=== PATIENT | female | born 1955 | race Caucasian/White ===

== ENCOUNTER 2017-06-07 13:43 | Observation (INO) | payer OTHER ==
[~2017-06-07] VITALS: Ht 167.6 cm; Wt 125.8 kg
[~2017-06-07 13:43] MED LIST: BACTRIM DS TAB1 EACH PO; DOXYCYCLINE HY100 MG PO; TYLENOL # 31 EA PO; ZESTRIL10 MG PO
[2017-06-07] MEDS ORDERED: ASPIRIN 81 MG CHEW TAB PO ONE (14:00)
[2017-06-07 14:18] LABS: BASOPHILS # (AUTO) 0.1 (0.0-0.1); BASOPHILS % 0.7 % (0.0-1.0); EOSINOPHILS # (AUTO) 0.1 (0.0-0.4); EOSINOPHILS % 1.2 % (0.0-6.0); HEMATOCRIT 42.7 % (34.2-44.1); HEMOGLOBIN 14.1 g/dL (12.0-16.0); LYMPHOCYTES # (AUTO) 1.7 (1.0-3.2); LYMPHOCYTES % 14.8 % (18.0-39.1); MEAN CORPUSCULAR VOLUME 90.9 fL (81-99); MONOCYTES # (AUTO) 0.5 (0.2-0.8); MONOCYTES % 4.4 % (4.4-11.3); NEUTROPHILS # (AUTO) 8.8 (2.1-6.9); NEUTROPHILS % 78.3 % (38.7-80.0); PLATELET COUNT 383 x10e3/uL (140-360); RED CELL DISTRIBUTION WIDTH 14.3 % (11.7-14.4)
[2017-06-07 14:23] LABS: PROTHROMBIN TIME 12.4 seconds (11.9-14.5)
[2017-06-07 14:24] LABS: PARTIAL THROMBOPLASTIN TIME 25.8 seconds (23.8-35.5)
[2017-06-07 14:30] LABS: ALANINE AMINOTRANSFERASE 18 IU/L (0-55); ALBUMIN 3.6 g/dL (3.5-5.0); ALBUMIN/GLOBULIN RATIO 0.9 (0.8-2.0); ALKALINE PHOSPHATASE 81 IU/L (40-150); ANION GAP 15.7 mmol/L (8-16); BLOOD UREA NITROGEN 9 mg/dL (7-26); BUN/CREATININE RATIO 11 (6-25); CALCIUM 8.9 mg/dL (8.4-10.2); CARBON DIOXIDE 25 mmol/L (22-29); CHLORIDE 103 mmol/L (98-107); CREATINE KINASE 69 IU/L (29-168); CREATININE, SERUM 0.82 mg/dL (0.57-1.11); EST GLOMERULAR FILTRATION RATE > 60 ML/MIN (60-); GLUCOSE 116 mg/dL (74-118); POTASSIUM 4.7 mmol/L (3.5-5.1); SODIUM 139 mmol/L (136-145)
--- NOTE | 2017-06-07 15:23 | Diagnostic Imaging Report ---
PROCEDURE: CHEST SINGLE (PORTABLE) 1442 hrs. COMPARISON: Chest x-ray 12/27/15. INDICATIONS: SHORTNESS OF BREATH, CHEST PAIN, DYSPNEA FINDINGS: LUNGS: Lung volumes are slightly diminished. No mass, consolidations or edema. PLEURA: No effusions or pneumothorax. HEART \T\ MEDIASTINUM: The heart is within normal size-limits. BONES \T\ SOFT TISSUES: No focal osseous lesions. Soft tissue are unremarkable. CONCLUSION: Low lung volumes. No acute cardiopulmonary process. Dictated by: Chau Bynum M.D. on 06/07/2017 at 15:22 Electronically approved by: Chau Bynum M.D. on 06/07/2017 at 15:22
[2017-06-07 16:58] LABS: ABG HCO3 31 mmol/L (23-28); ABG PCO2 45 mmHg (41-51); ABG PH 7.44 (7.31-7.41); ABG PO2 64 mmHg (80-105)
[2017-06-07] MEDS ORDERED: ENOXAPARIN INJ 80 MG/0.8 ML SYR SC STA (17:42)
[2017-06-07] MEDS ORDERED: ALBUTEROL/IPRATROPIUM 3 ML NEB NEB PRN (17:45)
[2017-06-07] MEDS ORDERED: HYDRALAZINE HCL 20 MG/ML VIAL IV PRN (18:00)
[2017-06-07] MEDS ORDERED: GABAPENTIN300 MG PO (19:34)
[2017-06-07] MEDS ORDERED: FOLIC ACID1 MG PO (19:34)
[2017-06-07] MEDS ORDERED: BENZONATATE100 MG PO (19:34)
[2017-06-07] MEDS ORDERED: MULTI-VITAMIN1 EACH PO (19:34)
[2017-06-07] MEDS ORDERED: METOPROLOL TAR100 MG PO (19:34)
[2017-06-07] MEDS ORDERED: AMLODIPINE BESY10 MG PO (19:34)
[2017-06-07] MEDS ORDERED: VITAMIN B-121000 MCG PO (19:34)
[2017-06-07] MEDS ORDERED: ADVAIR 100-501 EACH (19:34)
[2017-06-07] MEDS ORDERED: ALBUTEROL0.63 MG/3 (19:34)
[2017-06-07] MEDS ORDERED: THIAMINE HCL100 MG PO (19:34)
--- OUTSIDE RECORDS SUMMARY | 2017-06-07 19:59 | XMS REPORT ---
Author Author [facility] Address Unknown Phone Unavailable Care Team Providers Care Safety Assistant Name Role Phone MAGALIS HI Unavailable Unavailable Problems This patient has no known problems. Allergies, Adverse Reactions, Alerts This patient has no known allergies or adverse reactions. Medications This patient has no known medications. Results Test Description Test Time Test Comments Text Results Atomic Results Result Comments CHEST SINGLE (PORTABLE) [place] [address] Patient Name: JESSY HANLEY MR #: [id number] : 1955 Age/Sex: 62/F Req #: [id number] Adm Physician: Ordered by: MAGALIS HI MD Report #: [id number] Location: ER Room/Bed: Procedure: [id number] DX/CHEST SINGLE (PORTABLE) Exam Date: 06/07/17 Exam Time: 1440 REPORT STATUS: Signed PROCEDURE: CHEST SINGLE (PORTABLE) 1442 hrs. COMPARISON: Chest x-ray 12/27/15. INDICATIONS: SHORTNESS OF BREATH, CHEST PAIN, DYSPNEA FINDINGS: LUNGS: Lung volumes are slightly diminished. No mass, consolidations or edema. PLEURA: No effusions or pneumothorax. HEART T MEDIASTINUM: The heart is within normal size-limits. BONES T SOFT TISSUES: No focal osseous lesions. Soft tissue are unremarkable. CONCLUSION: Low lung volumes. No acute cardiopulmonary process. Dictated by: Yonny Bynum M.D. on 06/07/2017 at 15:22 Electronically approved by: Yonny Bynum M.D. on 06/07/2017 at 15:22 Dictated By: YONNY BYNUM MD 1522 Transcribed By: CHEL on 06/07/17 1522 COPY TO: MAGALIS HI MD
[2017-06-07 20:20] VITALS: BP 175/103
[2017-06-07 20:35] VITALS: BP 175/103
[2017-06-07] MEDS ORDERED: FUROSEMIDE INJ 10 MG/ML 4 ML VIAL IV SCH (21:00)
[2017-06-07 21:17] VITALS: BP 175/103
[2017-06-07 21:28] VITALS: BP 175/103
[2017-06-07] MEDS: ACETAMINOPHEN 325 MG TAB PO PRN (22:04)
[2017-06-07] MEDS: GABAPENTIN 300 MG CAP PO SCH (22:04)
[2017-06-07] MEDS ORDERED: SODIUM CHLORIDE 0.9% 50ML 50 ML ONE (22:18)
[2017-06-07] MEDS ORDERED: IOPAMIDOL 370 MG/ML 200 ML INFUS..BTL INJ ONE (22:18)
--- NOTE | 2017-06-07 22:21 | Diagnostic Imaging Report ---
EXAM: CT Chest WITH contrast 06/07/2017 6:03 PM INDICATION: Shortness of breath, pulmonary embolism COMPARISON: None TECHNIQUE: Chest was scanned utilizing a multidetector helical scanner from the lung apex through the level of the adrenal glands without administration of IV contrast. Coronal and sagittal reformations were obtained. Routine protocol was performed. IV CONTRAST: 100 mL of Isovue-370 RADIATION DOSE: Total DLP: 526.12 mGy*cm Estimated effective dose: (DLP x 0.014 x size factor) mSv COMPLICATIONS: None FINDINGS: LINES/ TUBES: None. LUNGS AND AIRWAYS: Small right apical pneumatocele in the superior segment of the right lower lobe. Minimal rounded atelectasis in the right middle lobe series 3, image 74 Airways are normal. PLEURA: The pleural spaces are clear. HEART AND MEDIASTINUM: The thyroid gland is normal. No mediastinal, hilar or axillary lymphadenopathy. The heart is normal in size.. There is no pericardial effusion. There are mild atherosclerotic calcifications in the aorta and coronary arteries. No evidence of filling defects in the distribution of the pulmonary arteries. The pulmonary artery is normal in caliber measuring 2.7 cm. UPPER ABDOMEN: Limited non-contrast views of the upper abdomen show no abnormality within the visualized liver, spleen, pancreas, or kidneys. The adrenal glands are normal. BONES: There are mild degenerative changes in the thoracic spine. SOFT TISSUES: Unremarkable. IMPRESSION: No acute intrathoracic abnormality. Specifically, no evidence of pulmonary embolism. Signed by: Dr. Jim Carmen M.D. on 06/07/2017 10:17 PM
[2017-06-08] VITALS (8 sets, daily range): BP systolic 120–151; BP diastolic 60–87
[2017-06-08 01:22] LABS: CREATINE KINASE 60 IU/L (29-168)
[2017-06-08] MEDS: FUROSEMIDE INJ 10 MG/ML 2 ML VIAL IV SCH ×3 (05:18→17:10)
[2017-06-08] MEDS: GABAPENTIN 300 MG CAP PO SCH ×3 (06:07→21:49)
[2017-06-08] MEDS ORDERED: ALBUTEROL SULF 0.083% NEB SOLN 3 ML NEB NEB SCH (07:00)
[2017-06-08] MEDS ORDERED: SALMETEROL/FLUTICASONE 100/50 INH SCH (07:00)
[2017-06-08] MEDS: LISINOPRIL 20 MG TAB PO SCH (08:25)
[2017-06-08] MEDS: METOPROLOL TARTRATE 50 MG TAB PO SCH ×2 (08:25→17:10)
[2017-06-08] MEDS ORDERED: LORAZEPAM INJ 2 MG/ML VIAL IV PRN (08:30)
[2017-06-08] MEDS ORDERED: AMLODIPINE BESYLATE 10 MG TAB PO SCH (09:00)
--- NOTE | 2017-06-08 09:04 | History and Physical ---
CHIEF COMPLAINT: Trouble breathing for the last few months and progressively getting worse and leg swelling. HISTORY OF PRESENT ILLNESS: A 62-year-old pleasant female with a past medical history of multiple medical problems was admitted at [facility] with the above complaints. The patient was seen in my office yesterday morning with the above complaints. As per the patient, since the last few months she had trouble breathing on exertion. Also, she had trouble lying down flat on the bed because the patient could not breathe. Also, complaining of bilateral leg swelling progressively getting worse. Hence, the patient came to my office yesterday. The patient was referred to the ER for further workup and treatment. In the emergency room, the patient was seen by the emergency room doctor and was admitted to the hospital for further care and treatment. At present, the patient is lying comfortably in bed. Feeling better. No chest pain. No nausea, vomiting or diarrhea. No abdominal pain or loss of consciousness. No palpitations. No headaches. No hematemesis. No melena. No hematuria or dysuria. No fever. No cough. No witnessed seizures. PAST MEDICAL HISTORY 1. Hypertension. 2. Hypothyroidism. 3. COPD. 4. Peripheral neuropathy. 5. Depression. 6. Alcoholism. SURGICAL HISTORY: Hysterectomy. ALLERGIES: NO KNOWN DRUG ALLERGIES. SOCIAL HISTORY: Smoking plus about half a pack a day. Alcohol abuse on and off plus. Last drink about 3 days back. No illicit drug use. FAMILY HISTORY: Noncontributory. REVIEW OF SYSTEMS: As per HPI. PHYSICAL EXAMINATION GENERAL: The patient is alert and oriented times 3. No apparent distress. Lying in bed. VITALS: Temperature is 97.9, pulse 77 per minute, respiratory rate 20, blood pressure 125/70, and saturation is 95% on room air. HEENT: No cyanosis. No icterus. No pallor. Normocephalic and atraumatic. PERRLA. NECK: Soft and supple. No JVD or carotid bruits. LUNGS: Air entry bilaterally decreased. HEART: S1 and S2. No murmur, rub or gallop. ABDOMEN: Soft and nontender. Bowel sounds positive. CLERK TELEGRAPH SERVICE: Alert and oriented times 3. No focal deficit. EXTREMITIES: Pedal edema +2. LABS: On admission to the ER, white count 11.28, hemoglobin 14.1, hematocrit 42.7, and platelets 380,000. Sodium 139, potassium 4.7, chloride 103, bicarb 25, BUN 9, creatinine 0.8, glucose 116. LFTs noted. Cardiac enzymes times 2 negative. Alcohol level less than 10. ABG on admission to the ER with pH of 7.44, pCO2 45, pO2 64. Chest x-ray shows lower lung volumes. No acute cardiopulmonary process. CT of chest with PE protocol shows no acute intrathoracic abnormalities. No evidence of pulmonary embolism. EKG shows sinus rhythm with occasional PVCs and PACs. No acute S/T changes. ASSESSMENT 1. Dyspnea, orthopnea: Could be chronic obstructive pulmonary disease exacerbation with underlying /diastolic congestive heart failure. 2. History of hypertension, hypothyroidism, depression, anxiety, and alcoholism. PLAN: Admit the patient to med/tele. Cardiology consult noted. Echo pending report. The patient is on IV Lasix, oxygen neb treatments. Pulmonary consultation with Dr. Thompson. DVT prophylaxis. Will also get psych evaluation with Dr. Menendez. DVT and stress prophylaxis. Further care and treatment of the patient in the hospital. Job#: [id number] TAHIR
[2017-06-08] MEDS: FOLIC ACID 1 MG TAB PO SCH (09:35)
[2017-06-08] MEDS: THIAMINE HCL 100 MG TAB PO SCH (09:35)
[2017-06-08 10:06] LABS: CREATINE KINASE MB 0.6 ng/mL (0-5.0)
--- NOTE | 2017-06-08 11:43 | Consultation ---
DATE OF CONSULTATION: PULMONARY CONSULTATION REASON FOR CONSULTATION: Shortness of breath. HPI: Ms. Olguin is a 62-year-old female. She was seen in Dr. Silver's office where she became short of breath. Dr. Silver admitted the patient for further workup. Patient reports that she has been having difficulty lying flat for years and it is progressively getting worse. She has shortness of breath on exertion. She has been diagnosed with COPD. She has been a smoker for 40 years. She also noticed that she had palpitations for years as well. She denies any chest pain, nausea, vomiting or diarrhea. She still smokes. She is morbidly obese. She has never been tested for sleep apnea. REVIEW OF SYSTEMS GENERAL: Denies any fever or chills. HEAD: Denies any head trauma or head injury. ENT: Denies any earache, nosebleed or throat pain. CVS: Denies any chest pain. RESPIRATORY: Shortness of breath and orthopnea. GI: Denies any nausea or vomiting. OTHER: The rest of the review systems are negative except as in HPI. PAST MEDICAL HISTORY: Hypertension, COPD, hypothyroidism, peripheral neuropathy, history of depression. PAST SURGICAL HISTORY: Hysterectomy. FAMILY AND SOCIAL HISTORY: She reports that she drinks occasionally. However, Dr. Silver's note says the patient has history of alcohol abuse off and on and binge drinking. She smokes 1 pack per day for 40 years. She used to work with adults with disabilities, currently not working. She is . Her son and [id number] live with her. FAMILY HISTORY: Significant for hypertension on the father's side. PHYSICAL EXAMINATION VITAL SIGNS: Temperature 97.9, pulse 75, blood pressure 125/64, respiratory rate 18, O2 sat 94% on room air. SKIN: Warm and dry. GENERAL APPEARANCE: She is a middle-aged female not in any obvious distress. She is awake and alert, following commands. Responding to questions appropriately. HEENT: Head is atraumatic normocephalic. Pupils are reactive. NECK: Supple. No JVD. Thyroid not enlarged. CHEST: Clear to auscultation bilaterally, no wheezing. HEART: S1, S2 audible. ABDOMEN: Soft, nontender, nondistended. EXTREMITIES: 2+ peal edema. NEUROLOGIC: Awake, alert and oriented. LABORATORY DATA: White count 11,000, hemoglobin 14.1, platelets 383. Chemistry is within normal limits. Troponins are negative. CT of the chest: I reviewed the images, and it is not showing any abnormalities in the chest and no pulmonary embolism. ASSESSMENT: Ms. Olguin is a 62-year-old female who presented with orthopnea. Cardiology workup is in progress. Patient has known history of chronic obstructive pulmonary disease, and she still smokes. There is a high probability the patient has sleep apnea. However, she told me that she would never use CPAP and does not want me to order any CPAP here. PLAN: At this point I will recommend continuing oxygen if the saturation is less than 90%. Will order pulmonary function test. Continue the patient on nebulizer and Advair as ordered. Thank you for this consult. Job#: [id number]
[2017-06-08] MEDS ORDERED: LORAZEPAM 0.5 MG TAB PO PRN (13:45)
[2017-06-08] MEDS: ACETAMINOPHEN 325 MG TAB PO PRN (14:28)
[2017-06-08] MEDS ORDERED: ENOXAPARIN SOD INJ 40 MG/0.4 ML SYR SC SCH (17:00)
[2017-06-08] MEDS: SALMETEROL/FLUTICASONE 250/50 INH SCH (21:10)
[2017-06-09 04:29] VITALS: BP 134/83
[2017-06-09] MEDS: GABAPENTIN 300 MG CAP PO SCH (06:15)
[2017-06-09 06:33] LABS: BASOPHILS # (AUTO) 0.1 (0.0-0.1); BASOPHILS % 0.7 % (0.0-1.0); EOSINOPHILS # (AUTO) 0.2 (0.0-0.4); EOSINOPHILS % 2.9 % (0.0-6.0); HEMATOCRIT 38.6 % (34.2-44.1); HEMOGLOBIN 12.6 g/dL (12.0-16.0); LYMPHOCYTES # (AUTO) 2.1 (1.0-3.2); LYMPHOCYTES % 30.9 % (18.0-39.1); MEAN CORPUSCULAR HEMOGLOBIN 29.5 pg (28-32); MEAN CORPUSCULAR HGB CONC 32.6 g/dL (31-35); MEAN CORPUSCULAR VOLUME 90.4 fL (81-99); MONOCYTES # (AUTO) 0.5 (0.2-0.8); MONOCYTES % 7.2 % (4.4-11.3); NEUTROPHILS # (AUTO) 3.9 (2.1-6.9); PLATELET COUNT 285 x10e3/uL (140-360); RED BLOOD COUNT 4.27 x10e6/uL (3.6-5.1); RED CELL DISTRIBUTION WIDTH 14.7 % (11.7-14.4)
[2017-06-09 06:58] LABS: ALANINE AMINOTRANSFERASE 13 IU/L (0-55); ALBUMIN 3.1 g/dL (3.5-5.0); ALBUMIN/GLOBULIN RATIO 0.9 (0.8-2.0); ALKALINE PHOSPHATASE 71 IU/L (40-150); ANION GAP 15.3 mmol/L (8-16); BLOOD UREA NITROGEN 12 mg/dL (7-26); BUN/CREATININE RATIO 16 (6-25); CALCIUM 8.7 mg/dL (8.4-10.2); CARBON DIOXIDE 29 mmol/L (22-29); CHLORIDE 98 mmol/L (98-107); CREATININE, SERUM 0.73 mg/dL (0.57-1.11); EST GLOMERULAR FILTRATION RATE > 60 ML/MIN (60-); GLUCOSE 102 mg/dL (74-118); POTASSIUM 3.3 mmol/L (3.5-5.1); SODIUM 139 mmol/L (136-145)
[2017-06-09] MEDS ORDERED: PANTOPRAZOLE SOD 40 MG TABEC PO SCH (07:30)
[2017-06-09] MEDS: SALMETEROL/FLUTICASONE 250/50 INH SCH (07:40)
[2017-06-09] MEDS ORDERED: POTASSIUM CHLORIDE 20 MEQ TAB CR PO STA (08:07)
[2017-06-09 08:42] VITALS: BP 155/71
--- NOTE | 2017-06-09 08:46 | Consultation ---
DATE OF CONSULTATION: June 08, 2017 PSYCHIATRIC CONSULTATION REASON FOR CONSULTATION: Evaluate the patient's anxiety. HISTORY OF PRESENT ILLNESS: The patient is a 62-year-old female admitted to the hospital for acute dyspnea. Psychiatric consultation is called to evaluate the patient's mood. As per the medical record, the patient was taken to the hospital for trouble breathing. [facility] and was having trouble breathing on exertion, especially when she is lying down flat on the bed. The patient was taken to the ER for further workup. Her medical history includes hypertension, hypothyroidism, COPD, peripheral neuropathy, depression, alcoholism. Upon evaluation today, the patient is found to be standing up, walking around in her room. She is alert, awake and oriented to situation. The patient claims that she has been feeling intermittently anxious, especially when she is told to lie down flat. She claims that due to her weight she feels anxiety in this position, and afraid that she will not be able to breathe if she is asked to lie down. Otherwise, she denies any anxiety at this time. Denies any depression. She denies any suicidal ideation. She denies any hallucinations. She reports she has been eating fair. She is taking her medications and denies any side effects. PAST PSYCHIATRIC HISTORY: The patient reported seeing a psychiatrist a long time ago for some depression, but she has not been taking any medication. She denies past suicide attempts. She drinks alcohol twice a week, 2-3 glasses at night of leslye. Last drink was 3-4 days ago. She denies any drug use. FAMILY HISTORY: The patient states that her father has a history of dementia and son-in-law committed suicide. SOCIAL HISTORY: The patient lives alone. MENTAL STATUS EXAMINATION GENERAL: The patient is an obese female. She is alert, awake and oriented to situation. Her mood is anxious. She denies any suicide or homicidal ideations. She denies any hallucinations. Thought process is concrete. She does not elicit paranoia or delusional thinking. Insight and judgment are fair. Memory is grossly intact. CURRENT MEDICATIONS 1. Thiamine. 2. Folic acid. 3. Metoprolol. 4. Lisinopril. 5. Neurontin 300 mg p.o. 3 times a day. 6. Acetaminophen. 7. Hydralazine. 8. Furosemide. 9. Amlodipine. 10. Ativan p.r.n. IV. 11. Enoxaparin. 12. Pantoprazole. 13. Fluticasone. 14. Albuterol and ipratropium. CURRENT LABS: WBC 6.8, RBC 4.27, hemoglobin 12.6, hematocrit 38.6, and platelets 285,000. Sodium 139, potassium 3.3, chloride 98, CO2 29, BUN 12, creatinine 0.73. ASSESSMENT: Anxiety disorder with agoraphobia. PLAN: Continue with Ativan 0.5 mg IV q.6 h. p.r.n. Add Ativan 0.5 mg p.o. q.6 h. p.r.n. Continue Neurontin. Add Zoloft 50 mg p.o. daily if the patient agrees. Supportive therapy. Thank you for this consultation. DICTATED BY EVA ALCARAZ Job#: [id number] [place]
[2017-06-09] MEDS ORDERED: SERTRALINE HCL 50 MG TAB PO SCH (09:00)
[2017-06-09] MEDS ORDERED: AMLODIPINE BESYLATE 10 MG TAB PO SCH (09:00)
[2017-06-09] MEDS: METOPROLOL TARTRATE 50 MG TAB PO SCH (09:29)
[2017-06-09] MEDS: FOLIC ACID 1 MG TAB PO SCH (09:29)
[2017-06-09] MEDS: FUROSEMIDE INJ 10 MG/ML 2 ML VIAL IV SCH (09:29)
[2017-06-09] MEDS: THIAMINE HCL 100 MG TAB PO SCH (09:30)
[2017-06-09] MEDS: LISINOPRIL 20 MG TAB PO SCH (09:30)
[2017-06-09] MEDS ORDERED: ZOLOFT50 MG PO (09:35)
[2017-06-09] MEDS: ACETAMINOPHEN 325 MG TAB PO PRN (11:06)
[2017-06-09 12:12] VITALS: BP 158/76
== END 2017-06-09 14:35 | disposition home or self-care (01) ==
LOC: ER 13:43 → IMCU 19:56
PROVIDERS: ADMIT Internal Medicine; ATTEND Internal Medicine
DX: J44.1 Chronic obstructive pulmonary disease with (acute) exacerbation (principal); R06.01 Orthopnea; E03.9 Hypothyroidism, unspecified; I11.0 Hypertensive heart disease with heart failure; I50.30 Unspecified diastolic (congestive) heart failure; F10.20 Alcohol dependence, uncomplicated; F41.9 Anxiety disorder, unspecified; G62.9 Polyneuropathy, unspecified; F40.00 Agoraphobia, unspecified; F33.9 Major depressive disorder, recurrent, unspecified; F17.210 Nicotine dependence, cigarettes, uncomplicated; E66.01 Morbid (severe) obesity due to excess calories; Z68.41 Body mass index [BMI] 40.0-44.9, adult
CPT/HCPCS: 36415 ×3; 36600; 71045; 71260; 80053 ×2; 80320; 82550 ×2; 82553 ×2; 82805; 83880; 84484 ×2; 85025 ×2; 85379; 85610; 85730; 93005; 93306; 93970; 94640 ×3; 96372; 96374; 99284; G0378 ×3; J0360; J1650 ×2; J1940 ×3; J3411 ×2; Q9967